=== PATIENT | male | born 1935 | race Caucasian/White ===

== ENCOUNTER 2021-09-20 11:46 | Observation (INO) | payer MEDICARE ==
[2021-09-18 14:49] LABS: BASOPHILS # (AUTO) 0.1 (0.0-0.1); BASOPHILS % 0.8 % (0.0-1.0); EOSINOPHILS # (AUTO) 0.5 (0.0-0.4); EOSINOPHILS % 6.2 % (0.0-6.0); HEMATOCRIT 44.9 % (38.2-49.6); HEMOGLOBIN 14.7 g/dL (14.0-18.0); LYMPHOCYTES # (AUTO) 1.5 (1.0-3.2); LYMPHOCYTES % 19.6 % (18.0-39.1); MEAN CORPUSCULAR HEMOGLOBIN 31.7 pg (28-32); MEAN CORPUSCULAR HGB CONC 32.7 g/dL (31-35); MEAN CORPUSCULAR VOLUME 96.8 fL (81-99); MONOCYTES # (AUTO) 0.7 (0.2-0.8); MONOCYTES % 9.1 % (4.4-11.3); NEUTROPHILS # (AUTO) 4.8 (2.1-6.9); NEUTROPHILS % 63.1 % (38.7-80.0); PLATELET COUNT 219 x10e3/uL (140-360); RED BLOOD COUNT 4.64 x10e6/uL (4.3-5.7); RED CELL DISTRIBUTION WIDTH 13.2 % (11.7-14.4)
[2021-09-18 15:10] LABS: ALBUMIN 3.8 g/dL (3.5-5.0); CALCIUM 9.1 mg/dL (8.4-10.2); CREATININE, SERUM 1.26 mg/dL (0.72-1.25)
[~2021-09-20] VITALS: Ht 170.2 cm; Wt 75.7 kg
[~2021-09-20 11:46] MED LIST: ALTOPREV40 MG PO; CEFDINIR300 MG PO; COREG3.125 MG PO; FINASTERIDE5 MG PO; FLOMAX0.4 MG PO; GLIPIZIDE ER5 MG PO; JANUVIA100 MG PO; ZESTRIL2.5 MG PO; ZETIA10 MG PO
[2021-09-20] MEDS ORDERED: SEVOFLURANE INHAL SOLN 250 ML PEN BTL ONE (12:07)
[2021-09-20] MEDS ORDERED: DEXAMETHASONE SOD PHOS INJ 4 MG/ML SDV ONE (12:07)
[2021-09-20] MEDS ORDERED: ACETAMINOPHEN 1000 MG/100 ML IV ONE (12:07)
[2021-09-20] MEDS ORDERED: ONDANSETRON HCL INJ 2MG/ML 2ML 2 MG/ML VIAL ONE (12:07)
[2021-09-20] MEDS ORDERED: LIDOCAINE HCL 2% LOCAL INJ 5 ML SDV VIAL INJ ONE (12:07)
[2021-09-20] MEDS ORDERED: PROPOFOL IV EMULSION 10 MG/ML 20 ML VIAL ONE (12:07)
[2021-09-20] MEDS ORDERED: POVIDONE IODINE 0.05% 0.05 % ML PO ONE (12:07)
[2021-09-20] MEDS ORDERED: ROCURONIUM BROMIDE 10 MG/ML 5ML VIAL IV ONE (12:07)
[2021-09-20] MEDS ORDERED: FENTANYL CITRATE/PF 100MCG/2 ML INJ ONE (13:23)
[2021-09-20] MEDS ORDERED: IOPAMIDOL 610MG/1ML 300 MG/ML VIAL IV ONE (13:51)
[2021-09-20] MEDS ORDERED: B&O 60MG R/S 60 MG SUPP PR ONE (14:37)
[2021-09-20] MEDS ORDERED: HYDROCODONE/APAP 5MG-325MG TAB PO PRN (16:45)
[2021-09-20] MEDS ORDERED: B&O 60MG R/S 60 MG SUPP PR PRN (16:45)
[2021-09-20 17:51] VITALS: BP 163/79
[2021-09-20] MEDS: SODIUM CHLORIDE 0.9% 1000ML 1,000 ML IV SCH (18:03)
[2021-09-20 19:51] VITALS: BP 143/71
[2021-09-20 20:00] VITALS: BP 143/71
[2021-09-20] MEDS ORDERED: CEFDINIR 300 MG CAP PO SCH (21:00)
[2021-09-21 01:42] VITALS: BP 136/68
[2021-09-21] MEDS: SODIUM CHLORIDE 0.9% 1000ML 1,000 ML IV SCH (02:32)
[2021-09-21 06:38] VITALS: BP 134/70
[2021-09-21] MEDS ORDERED: GLIPIZIDE 5 MG TAB ER PO SCH (07:30)
[2021-09-21 07:39] VITALS: BP 121/63
[2021-09-21 08:44] VITALS: BP 121/63
[2021-09-21] MEDS ORDERED: SITAGLIPTIN 100 MG TAB PO SCH (09:00)
[2021-09-21] MEDS ORDERED: FINASTERIDE 5 MG TAB PO SCH (09:00)
[2021-09-21] MEDS ORDERED: EZETIMIBE 10 MG TAB PO SCH (09:00)
[2021-09-21] MEDS ORDERED: CARVEDILOL 3.125 MG TAB PO SCH (09:00)
[2021-09-21] MEDS ORDERED: TAMSULOSIN HCL 0.4 MG CAP PO SCH (09:00)
[2021-09-21] MEDS ORDERED: LISINOPRIL 2.5 MG TAB PO SCH (09:00)
[2021-09-21] MEDS ORDERED: ACETAMINOPHEN/CODEINE 300MG - 30MG TAB PO PRN (10:00)
[2021-09-21 11:53] VITALS: BP 122/62
[2021-09-21] MEDS ORDERED: SIMVASTATIN 20 MG TAB PO SCH (21:00)
== END 2021-09-21 13:26 | disposition home or self-care (01) ==
LOC: OR 11:46 → MED/SURG 16:20 → INTOOBSV 16:20
PROVIDERS: ADMIT Urology; ATTEND Urology
DX: N40.1 Benign prostatic hyperplasia with lower urinary tract symptoms (principal); N13.8 Other obstructive and reflux uropathy; R39.15 Urgency of urination; R35.0 Frequency of micturition; N35.911 Unspecified urethral stricture, male, meatal; N35.913 Unspecified membranous urethral stricture, male; R39.14 Feeling of incomplete bladder emptying; R33.8 Other retention of urine; I10 Essential (primary) hypertension; E11.9 Type 2 diabetes mellitus without complications; Z01.810 Encounter for preprocedural cardiovascular examination; Z01.812 Encounter for preprocedural laboratory examination; Z01.818 Encounter for other preprocedural examination; Z20.822 Contact with and (suspected) exposure to COVID-19; Z79.84 Long term (current) use of oral hypoglycemic drugs
CPT/HCPCS: 36415 ×3; 52601; 71046; 80053; 82948 ×2; 85025; 87086; 88305; 93005; 96360; 96361; 99251; C1758; G0378 ×2; J0131; J0690; J1100; J2001; J2405; J2704; J3010; J7030 ×2; Q9967; U0002

== ENCOUNTER 2022-07-21 11:36 | Observation (INO) | payer SELFPAY ==
[~2022-07-21] VITALS: Ht 170.2 cm; Wt 75.7 kg
[2022-07-21] MEDS ORDERED: SODIUM CHLORIDE 0.9% 1000ML 1,000 ML IV STA (11:44)
[2022-07-21 11:58] LABS: BASOPHILS # (AUTO) 0.1 (0.0-0.1); BASOPHILS % 0.7 % (0.0-1.0); EOSINOPHILS # (AUTO) 0.5 (0.0-0.4); EOSINOPHILS % 5.3 % (0.0-6.0); HEMATOCRIT 37.7 % (38.2-49.6); HEMOGLOBIN 12.6 g/dL (14.0-18.0); LYMPHOCYTES % 9.5 % (18.0-39.1); MEAN CORPUSCULAR HEMOGLOBIN 30.7 pg (28-32); MEAN CORPUSCULAR HGB CONC 33.4 g/dL (31-35); MONOCYTES % 9.4 % (4.4-11.3); NEUTROPHILS # (AUTO) 7.5 (2.1-6.9); NEUTROPHILS % 73.5 % (38.7-80.0); PLATELET COUNT 182 x10e3/uL (140-360); RED CELL DISTRIBUTION WIDTH 13.7 % (11.7-14.4)
[2022-07-21 12:08] LABS: INR 1.04; PROTHROMBIN TIME 14.1 seconds (11.9-14.5)
[2022-07-21 12:09] LABS: PARTIAL THROMBOPLASTIN TIME 28.2 seconds (23.8-35.5)
[2022-07-21 12:27] LABS: ALBUMIN/GLOBULIN RATIO 0.9 (0.8-2.0); ANION GAP 16.1 mmol/L (8-16); CALCIUM 8.4 mg/dL (8.4-10.2); CREATININE, SERUM 1.4 mg/dL (0.72-1.25); MAGNESIUM 1.7 MG/DL (1.3-2.1); POTASSIUM 4.1 mmol/L (3.5-5.1)
[2022-07-21 13:10] LABS: CLARITY,URINE TURBID (CLEAR); COLOR,URINE YELLOW (YELLOW)
[2022-07-21 13:11] LABS: KETONES,URINE TRACE (NEGATIVE); LEUKOCYTE ESTERASE ,URINE TRACE (NEGATIVE); NITRITE,URINE NEGATIVE (NEGATIVE); PROTEIN,URINE DIPSTICK 2+ (NEGATIVE); URINE UROBILINOGEN 0.2 mg/dL (0.2 - 1)
[2022-07-21] MEDS ORDERED: DEXTROSE 50% SYRINGE 50 ML IV PRN (13:15)
[2022-07-21] MEDS ORDERED: ONDANSETRON HCL INJ 2MG/ML 2ML 2 MG/ML VIAL IV PRN (13:15)
[2022-07-21 13:18] LABS: BACTERIA,URINE MANY /HPF; EPITHELIAL CELLS,URINE RARE /LPF; RBC,URINE 0-5 /HPF (0-5)
[2022-07-21 15:00] VITALS: BP 119/64
[2022-07-21] MEDS: SODIUM CHLORIDE 0.9% 1000ML 1,000 ML IV SCH (15:22)
[2022-07-21] MEDS: INSULIN LISPRO 100 UNIT/1 ML 3ML VIAL SQ SCH ×2 (16:30→20:42)
[2022-07-21] MEDS ORDERED: ACETAMINOPHEN 325 MG TAB PO PRN (16:45)
[2022-07-21 19:30] VITALS: BP 143/69
[2022-07-21 19:38] LABS: CREATINE KINASE 57 IU/L (30-200)
[2022-07-21 20:31] VITALS: BP 143/69
[2022-07-21] MEDS ORDERED: SIMVASTATIN 20 MG TAB PO SCH (21:00)
[2022-07-22 00:25] VITALS: BP 143/65
[2022-07-22] MEDS: SODIUM CHLORIDE 0.9% 1000ML 1,000 ML IV SCH ×2 (01:35→12:03)
[2022-07-22 01:49] LABS: CREATINE KINASE 53 IU/L (30-200)
[2022-07-22 04:00] VITALS: BP 141/70
[2022-07-22 06:21] LABS: BASOPHILS # (AUTO) 0.1 (0.0-0.1); BASOPHILS % 0.7 % (0.0-1.0); EOSINOPHILS # (AUTO) 0.7 (0.0-0.4); EOSINOPHILS % 8.1 % (0.0-6.0); HEMATOCRIT 36.1 % (38.2-49.6); HEMOGLOBIN 11.7 g/dL (14.0-18.0); LYMPHOCYTES # (AUTO) 1.1 (1.0-3.2); LYMPHOCYTES % 12.1 % (18.0-39.1); MEAN CORPUSCULAR HEMOGLOBIN 30.7 pg (28-32); MEAN CORPUSCULAR HGB CONC 32.4 g/dL (31-35); MEAN CORPUSCULAR VOLUME 94.8 fL (81-99); MONOCYTES # (AUTO) 1.1 (0.2-0.8); MONOCYTES % 11.7 % (4.4-11.3); NEUTROPHILS # (AUTO) 6.1 (2.1-6.9); NEUTROPHILS % 66.3 % (38.7-80.0); PLATELET COUNT 161 x10e3/uL (140-360); RED BLOOD COUNT 3.81 x10e6/uL (4.3-5.7); RED CELL DISTRIBUTION WIDTH 13.6 % (11.7-14.4)
[2022-07-22 07:09] LABS: ALBUMIN 2.6 g/dL (3.5-5.0); ALBUMIN/GLOBULIN RATIO 0.8 (0.8-2.0); ANION GAP 11.8 mmol/L (8-16); CALCIUM 7.8 mg/dL (8.4-10.2); CHOL/HDL RATIO 4.4 (3.9-4.7); CREATININE, SERUM 1.17 mg/dL (0.72-1.25); POTASSIUM 3.8 mmol/L (3.5-5.1)
[2022-07-22 07:23] LABS: CREATINE KINASE 48 IU/L (30-200)
[2022-07-22 08:27] VITALS: BP 138/65
[2022-07-22 08:30] VITALS: BP 138/65
[2022-07-22] MEDS ORDERED: FINASTERIDE 5 MG TAB PO SCH (09:00)
[2022-07-22] MEDS ORDERED: CARVEDILOL 3.125 MG TAB PO SCH (09:00)
[2022-07-22] MEDS ORDERED: LISINOPRIL 2.5 MG TAB PO SCH (09:00)
[2022-07-22] MEDS ORDERED: EZETIMIBE 10 MG TAB PO SCH (09:00)
[2022-07-22] MEDS ORDERED: TAMSULOSIN HCL 0.4 MG CAP PO SCH (09:00)
[2022-07-22] MEDS: INSULIN LISPRO 100 UNIT/1 ML 3ML VIAL SQ SCH ×2 (09:02→12:03)
[2022-07-22 11:44] VITALS: BP 123/58
[2022-07-22] MEDS ORDERED: GLIPIZIDE5 MG PO (13:46)
== END 2022-07-22 14:21 | disposition home or self-care (01) ==
LOC: ER 11:45 → ERHOLD 13:18 → MED/SURG2 14:50
PROVIDERS: ADMIT Internal Medicine; ATTEND Internal Medicine
DX: R55 Syncope and collapse (principal); N28.9 Disorder of kidney and ureter, unspecified; I10 Essential (primary) hypertension; E11.9 Type 2 diabetes mellitus without complications; E78.5 Hyperlipidemia, unspecified; D86.9 Sarcoidosis, unspecified; N40.0 Benign prostatic hyperplasia without lower urinary tract symptoms; F17.200 Nicotine dependence, unspecified, uncomplicated; Z20.822 Contact with and (suspected) exposure to COVID-19; Z79.84 Long term (current) use of oral hypoglycemic drugs; Z79.899 Other long term (current) drug therapy; Z87.442 Personal history of urinary calculi
CPT/HCPCS: 36415 ×2; 71045; 80053 ×2; 80061; 81001; 82550 ×2; 82553 ×2; 82948 ×2; 83735; 83880; 84484 ×2; 85025 ×2; 85610; 85730; 87086; 93005; 94799 ×2; 99284; G0378 ×2; J0696; J7030 ×2; U0002

== ENCOUNTER → 2025-01-21 | Day surgery (SDC) | payer MEDICARE, OTHER ==
[2025-01-18 11:53] LABS: BASOPHILS % 0.8 % (0.0-1.0); EOSINOPHILS % 2.7 % (0.0-6.0); LYMPHOCYTES % 16.0 % (18.0-39.1); MONOCYTES % 11.6 % (4.4-11.3); NEUTROPHILS % 67.8 % (38.7-80.0); RED CELL DISTRIBUTION WIDTH 13.3 % (11.7-14.4)
[2025-01-18 12:32] LABS: EST GLOMERULAR FILTRATION RATE 52.0 ML/MIN (>=60)
[~2025-01-21] MED LIST changes: +CYCLOPENTOLATE HCL 2% OPTH SOLN 2 ML BTL OP ONE; +DEXAMETHASONE SOD PHOS INJ 4 MG/ML SDV ONE; +GATIFLOXACIN(OPTH) 5 ML LIQD ONE; +GLIPIZIDE5 MG PO; +GLYCOPYRROLATE INJ 0.2 MG/ML VIAL ONE; +HYDROXYZINE HCL25 MG PO; +LIDOCAINE HCL 2% LOCAL INJ 5 ML SDV VIAL INJ ONE; +MULTI-VITAMIN1 EACH PO; +ONDANSETRON HCL INJ 2MG/ML 2ML 2 MG/ML VIAL ONE; +PHENYLEPHRINE HCL 2 ML DROPS ONE; +PROPOFOL IV EMULSION 10 MG/ML 20 ML VIAL ONE; +RYBELSUS7 MG PO
[2025-01-21] MEDS: LACTATED RINGER'S 1,000 ML ONE (10:26)
[2025-01-21 11:38] VITALS: TEMP 97.8
[2025-01-21 11:50] VITALS: BP 179/89; PULSE 71; RESP 15; O2SAT 98
== END | disposition home or self-care (01) ==
LOC: OR 07:44
PROVIDERS: ATTEND Ophthalmology
DX: H25.11 Age-related nuclear cataract, right eye (principal); E11.9 Type 2 diabetes mellitus without complications; I10 Essential (primary) hypertension; E78.5 Hyperlipidemia, unspecified; M06.9 Rheumatoid arthritis, unspecified; Z88.8 Allergy status to other drugs, medicaments and biological substances; Z01.810 Encounter for preprocedural cardiovascular examination; Z01.812 Encounter for preprocedural laboratory examination; Z79.899 Other long term (current) drug therapy; Z79.84 Long term (current) use of oral hypoglycemic drugs
CPT/HCPCS: 36415 ×2; 66984; 80048; 82948; 84132; 85025; 93005; J1100; J2003; J2405; J2704; J7121